=== PATIENT | male | born 1965 | race Caucasian/White ===

== ENCOUNTER → 2017-03-02 | Day surgery (SDC) | payer OTHER ==
[~2017-03-02] VITALS: Ht 175.3 cm; Wt 86.2 kg
[~2017-03-02] MED LIST: 0.9% Sodium Chloride 1,000 ML IV SCH; Sodium Chloride LOK Flush 10 mL Syringe IV PRN; fentaNYL-PF 50 mCg/mL 2 mL Inj IVPUSH PRN
[2017-03-02 11:46] VITALS: BP 128/86; PULSE 70; RESP 15; O2SAT 98
[2017-03-02 12:57] VITALS: BP 108/67; PULSE 69; RESP 12; O2SAT 98
[2017-03-02 13:07] VITALS: BP 105/84; PULSE 76; RESP 12; O2SAT 100
--- NOTE | 2017-03-02 13:21 | ENDO ---
[address] [address] ENDOSCOPY PROCEDURE PATIENT: MAYRA BRIDGES : 1965 MR#: [id number] ADMIT: 03/02/2017 JOB ID: [id number] DATE OF SERVICE: 03/02/2017 PRIMARY PROVIDER: Gee Sheppard MD PROCEDURE: Colonoscopy with hot and cold snare polypectomies. INDICATIONS: A 51-year-old male who reports for colon cancer screening. EQUIPMENT: PCFH-180AL SEDATION: 5 mg Versed and 100 mcg fentanyl. COMPLICATIONS: None identified. BOWEL PREPARATION: Fair, adequate exam. PROCEDURE INFORMATION: After the risks and benefits were explained, written and verbal informed consent was obtained. The patient was brought in to the endoscopy suite and placed into the left lateral decubitus position. Sedation was achieved using the above-stated medications with the addition of oxygen via nasal cannula. A digital rectal examination was accomplished. No significant pathology apart from some mild to moderate internal hemorrhoids. The scope was introduced into the rectum and advanced to the cecum as identified by the appendiceal orifice and ileocecal valve. The scope was slowly withdrawn to carefully examine the mucosa for any defects or lesions. Retroflexed views were accomplished in the rectum. The colon was decompressed. The scope removed from the patient who tolerated the procedure well. FINDINGS: There were five polyps seen and removed today ranging in size from about 3-6 mm. Three of them came by way of hot snare and the two smallest came by way of cold snare. These were distributed fairly evenly throughout the entire colon and cecum. Direct views through the dentate line disclosed moderate internal hemorrhoids with hypertrophied anal papillae. ENDOSCOPIC DIAGNOSES: 1. Polyps x6. 2. Hemorrhoids. RECOMMENDATIONS: 1. Await histopathology. 2. Repeat colonoscopy in three years.
--- NOTE | 2017-03-04 09:55 | PATH ---
SURGICAL PATHOLOGY Attending Physician:Jeffery Martinez CASE STATUS: Signed Out PATIENT NAME: MAYRA BRIDGES PID: [id number] : 1965 DATE COLLECTED:03/02/2017 23:40 SPECIMEN: Colon, Polyp CLINICAL HISTORY: COLON POLYPS 1). COLON POLYPS X5 FINAL DIAGNOSIS: Colon Polyps x5, Biopsy: Tubular adenoma in 4 of 6 pieces. Sessile serrated adenoma in 1 of 6 pieces. Colonic mucosa with hyperplastic features in 1 of 6 pieces. ICD10: D12.6 GROSS DESCRIPTION: The specimen is received in one formalin filled container labeled with the patient's name, sublabeled "colon polyps" and consists of multiple portions of tissue which aggregate to 0.5 x 0.5 x 0.4 CM. The specimen is entirely submitted in one cassette. 03/03/2017DC ICD-9 CODES: CPT CODES: 1: 94134 Electronically Signed Out Marcus Santa MD [facility] [address], [place] [address] Technical component performed at [facility], [address], [address]
== END | disposition home or self-care (01) ==
LOC: END 00:50
PROVIDERS: ATTEND Internal Medicine Gastroenterology
DX: Z12.11 Encounter for screening for malignant neoplasm of colon (principal); D12.6 Benign neoplasm of colon, unspecified; K64.8 Other hemorrhoids; K62.89 Other specified diseases of anus and rectum; Z83.71 Family history of colonic polyps
CPT/HCPCS: 45385; G0500; J2250; J3010; J7030